=== PATIENT | male | born 1985 | race Caucasian/White ===

== ENCOUNTER 2022-08-25 16:54 | Emergency (ER) | payer MEDICAID ==
[~2022-08-25] VITALS: Ht 175.3 cm; Wt 95.3 kg
--- NOTE | 2022-08-25 16:55 | NUR ---
MD GOODE IN TRIAGE FOR MSE.
[2022-08-25] MEDS ORDERED: IBUPROFEN 600 MG TABLET PO ONE (17:00)
[2022-08-25 17:28] VITALS: BP_SYST 144
[2022-08-25] MEDS ORDERED: IBUPROFEN 600 MG TABLET ONE (19:31)
--- NOTE | 2022-08-25 19:32 | NUR ---
Patient to [facility] for evaluation.
[2022-08-25 20:01] VITALS: BP_SYST 126
--- NOTE | 2022-08-25 20:01 | NUR ---
PATIENT CURSING AT NURSE AFTER ATTEMPTING TO DISCHARGE PATIENT. STATES " YOU FUCKING DIDN'T DO SHIT FOR ME. YOU JUST FUCKING GAVE ME MOTRIN." " I DON'T FUCKING WANT TO LEAVE. " NURSE TRIED TO RE ORIENT PATIENT. PATIENT CONTINUED TO BECOME MORE HOSTILE. MD NOTIFIED. PATIENT DISCHARGED WITH PAPERWORK REFUSED TO SIGN.
--- NOTE | 2022-08-25 20:07 | NUR ---
Patient given written and verbal discharge instructions and verbalizes understanding. ER MD discussed with patient the results and treatment provided. Patient in stable condition. ID arm band removed. NO RX given. Patient educated on pain management and to follow up with PMD. Pain Scale 0/10 Opportunity for questions provided and answered.
--- NOTE | 2022-08-25 21:29 | NUR ---
patient escorted out by sorter pricer's department at this time. patient is ambulatory [id number]
== END 2022-08-25 20:01 | disposition home or self-care (01) ==
LOC: SED 16:54
DX: M79.671 Pain in right foot (principal); Z79.899 Other long term (current) drug therapy
CPT/HCPCS: 99283